=== PATIENT | male | born 1990 | race American Indian/Alaskan Native ===

== ENCOUNTER 2025-01-02 15:22 | Inpatient (IN) | payer OTHER ==
[~2025-01-02] VITALS: Ht 157.5 cm; Wt 90.1 kg
[2025-01-02 17:15] LABS: BASOPHILS % (AUTO) 1.3 % (0.0-2.0); EOSINOPHILS % (AUTO) 1.2 % (1.0-6.0); HEMATOCRIT 47.3 % (41-53); HEMOGLOBIN 15.8 g/dL (13.5-17.5); LYMPHOCYTES # (AUTO) 1.3 K/uL (1.0-4.8); MEAN CORPUSCULAR HEMOGLOBIN 27.2 pg (26.0-34.0); MEAN CORPUSCULAR HGB CONC 33.4 G/dL (31.0-37.0); MEAN CORPUSCULAR VOLUME 82 fL (80-100); MONOCYTES # (AUTO) 0.4 K/uL (0.1-1.0); MONOCYTES % (AUTO) 8.7 % (2.0-9.0); NEUTROPHILS # (AUTO) 2.6 K/uL (1.8-7.7); NEUTROPHILS % (AUTO) 58.8 % (40.0-70.0); PLATELET COUNT (AUTO) 189 K/uL (150-450); RED BLOOD CELL COUNT(AUTO) 5.79 MIL/uL (4.50-5.90); RED CELL DISTRIBUTION WIDTH 14.9 % (11.5-14.5); WHITE BLOOD COUNT (AUTO) 4.5 K/uL (4.5-11.0)
[2025-01-02 17:20] LABS: ANION GAP 6 mmol/L (8-16); CALCIUM, TOTAL 8.6 mg/dL (8.8-10.5); CARBON DIOXIDE 29 mmol/L (22-29); CHLORIDE 104 mmol/L (98-107); CREATININE 0.93 mg/dL (0.60-1.30); GLOMERULAR FILTR. RATE CALC > 60 mL/min (>60); GLUCOSE,RANDOM 93 mg/dL (70-110); POTASSIUM 4.5 mmol/L (3.5-5.1); SODIUM SERUM 139 mmol/L (136-145); UREA NITROGEN, BLOOD 11 mg/dL (7-18)
[2025-01-02] MEDS: VANCOMYCIN 1.75GM/WATER(PEG) 350 ML IV ONE (17:39)
[2025-01-02] MEDS ORDERED: MAGNESIUM HYDROXIDE SUSPENSION 30 ML UDCUP PO PRN (19:15)
[2025-01-02] MEDS ORDERED: OxyCODONE HCL/ACETAMINOPHEN 5-325 MG TABLET PO PRN (19:15)
[2025-01-02] MEDS ORDERED: ZOLPIDEM TARTRATE 5 MG TABLET PO PRN (19:15)
[2025-01-02] MEDS ORDERED: ONDANSETRON HCL 4 MG/2 ML VIAL IVP PRN (19:15)
[2025-01-02] MEDS ORDERED: ACETAMINOPHEN 325 MG TABLET PO PRN (19:15)
[2025-01-02] MEDS ORDERED: IOHEXOL 350 MG/ML 100 ML VIAL ONE (19:22)
[2025-01-02] MEDS ORDERED: 0.9% SODIUM CHLORIDE 10 ML SYRINGE IVP ONE (19:22)
[2025-01-02] MEDS ORDERED: SODIUM CHLORIDE 0.9% 100 ML ONE (19:22)
[2025-01-02 21:09] LABS: APPEARANCE,URINE CLEAR (CLEAR); BILIRUBIN,URINE NEGATIVE (NEGATIVE); COLOR,URINE LIGHT YELLOW (YELLOW); GLUCOSE, URINE (UA) NEGATIVE (NEGATIVE); KETONES,URINE NEGATIVE (NEGATIVE); LEUKOCYTE ESTERASE ,URINE NEGATIVE (NEGATIVE); NITRATE,URINE NEGATIVE (NEGATIVE); OCCULT BLOOD,URINE NEGATIVE (NEGATIVE); PH,URINE 5.5 (5.0-8.0); PROTEIN,URINE NEGATIVE (NEGATIVE); SPECIFIC GRAVITIY, URINE 1.022 (1.003-1.030); UROBILINOGEN,URINE <=1.0 mg/dL (<=1.0)
[2025-01-02] MEDS: PIPERACILLIN/TAZO 3.375 GM/D5W 50 ML IV ONE (21:15)
[2025-01-02] MEDS: DOCUSATE SODIUM 100 MG CAPSULE PO SCH (21:15)
[2025-01-02 22:15] VITALS: BP 131/67; PULSE 68; RESP 18; TEMP 98.6; O2SAT 95
[2025-01-03] MEDS ORDERED: SODIUM CHLORIDE 0.9% 500 ML IV ONE (03:46)
[2025-01-03] MEDS: PIPERACILLIN/TAZO 3.375 GM/D5W 50 ML IV SCH (04:30)
[2025-01-03 05:05] VITALS: BP 115/56; PULSE 53; RESP 18; TEMP 97.4; O2SAT 99
[2025-01-03] MEDS ORDERED: DEXAMETHASONE SOD PHOS 4 MG/ML VIAL ONE (06:03)
[2025-01-03] MEDS ORDERED: METOPROLOL TARTRATE 5 MG/5 ML VIAL ONE (06:03)
[2025-01-03] MEDS ORDERED: SUGAMMADEX SODIUM 200 MG/2 ML VIAL IVP ONE (06:03)
[2025-01-03] MEDS ORDERED: ONDANSETRON HCL 4 MG/2 ML VIAL ONE (06:03)
[2025-01-03] MEDS ORDERED: LIDOCAINE/PF 2% 5 ML VIAL ONE (06:03)
[2025-01-03] MEDS ORDERED: MIDAZOLAM HCL 2 MG/2 ML VIAL ONE (06:03)
[2025-01-03] MEDS ORDERED: FentaNYL CITRATE PF 100 MCG/2 ML VIAL ONE (06:03)
[2025-01-03] MEDS ORDERED: ROCURONIUM BROMIDE 10 MG/ML 5 ML VIAL ONE (06:03)
[2025-01-03] MEDS ORDERED: PROPOFOL 1% ISO-OSM 1000 MG/100 ML BOTTLE ONE (06:03)
[2025-01-03] MEDS ORDERED: CeFAZolin SODIUM 1 GM VIAL ONE (06:03)
[2025-01-03 07:36] LABS: ANION GAP 5 mmol/L (8-16); CALCIUM, TOTAL 8.2 mg/dL (8.8-10.5); CARBON DIOXIDE 30 mmol/L (22-29); CHLORIDE 106 mmol/L (98-107); CREATININE 0.99 mg/dL (0.60-1.30); GLOMERULAR FILTR. RATE CALC > 60 mL/min (>60); GLUCOSE,RANDOM 81 mg/dL (70-110); POTASSIUM 4.4 mmol/L (3.5-5.1); SODIUM SERUM 141 mmol/L (136-145); UREA NITROGEN, BLOOD 10 mg/dL (7-18)
[2025-01-03] MEDS: VANCOMYCIN 1.5 GM/WATER(PEG) 300 ML IV SCH (08:00)
[2025-01-03] MEDS: FAMOTIDINE 20 MG TABLET PO SCH (08:05)
[2025-01-03 10:04] VITALS: BP 105/58
[2025-01-03] MEDS: SODIUM CHLORIDE 0.9% 1,000 ML IV ONE (11:48)
[2025-01-03] MEDS ORDERED: RINGERS SOLUTION,LACTATED 1,000 ML IV ONE (13:24)
[2025-01-03] MEDS: CHLORHEXIDINE GLUCONATE 2% TOWELETTE [2'S/6'S] TP ONE (14:00)
[2025-01-03] MEDS: ETHYL ALCOHOL 62% ANTISEPTIC NASAL SANITIZER 0.6 ML AMPUL NASAL ONE (14:00)
[2025-01-03] MEDS: RINGERS SOLUTION,LACTATED 1,000 ML IV ONE (14:02)
[2025-01-03] MEDS ORDERED: HYDROmorphone HCL 2 MG/ML SYRINGE IVP PRN (15:45)
[2025-01-03] MEDS ORDERED: MEPERIDINE-PF 25 MG/ML VIAL IVP PRN (15:45)
[2025-01-03] MEDS ORDERED: FentaNYL CITRATE PF 100 MCG/2 ML VIAL IVP PRN (15:45)
[2025-01-03] MEDS: LIDOCAINE 1%/EPI 1:200,000/PF 30 ML VIAL ONE (16:24)
[2025-01-03 19:55] VITALS: BP 116/57; PULSE 71; RESP 18; TEMP 98.1; O2SAT 98
[2025-01-03] MEDS: OXYGEN THERAPY IH SCH (20:00)
[2025-01-04 05:22] VITALS: BP 110/54; PULSE 64; RESP 18; TEMP 98.1; O2SAT 96
[2025-01-04 07:36] LABS: ANION GAP 5 mmol/L (8-16); CALCIUM, TOTAL 8.4 mg/dL (8.8-10.5); CARBON DIOXIDE 28 mmol/L (22-29); CHLORIDE 103 mmol/L (98-107); GLOMERULAR FILTR. RATE CALC > 60 mL/min (>60); GLUCOSE,RANDOM 112 mg/dL (70-110); POTASSIUM 4.3 mmol/L (3.5-5.1); SODIUM SERUM 136 mmol/L (136-145); UREA NITROGEN, BLOOD 9 mg/dL (7-18)
[2025-01-04 08:25] VITALS: BP 103/53; PULSE 75; RESP 19; TEMP 97.7; O2SAT 96
[2025-01-04] MEDS: BUPRENORPHINE HCL/NALOXONE HCL 8-2 MG SUBLINGUAL TABLET SL ONE (10:06)
[2025-01-04] MEDS ORDERED: SULF-261 PO (10:16)
[2025-01-04] MEDS ORDERED: ACET-2247 PO (10:17)
[2025-01-04] MEDS ORDERED: MAGN-169 PO (10:18)
[2025-01-04] MEDS ORDERED: SULFAMETHOX/TRIMETH DS 800-160 MG/TABLET PO SCH (21:00)
== END 2025-01-04 19:15 | DRG 581 ==
LOC: EMS 15:22 → EDH 19:05 → 6N 21:42
PROVIDERS: ADMIT Internal Medicine; ATTEND Internal Medicine
PROC: 0W9F0ZZ Drainage of Abdominal Wall, Open Approach (ICD-10-PCS; principal; 2025-01-03 15:30)
DX: L03.311 Cellulitis of abdominal wall (principal); L02.211 Cutaneous abscess of abdominal wall; E66.9 Obesity, unspecified; Z68.36 Body mass index [BMI] 36.0-36.9, adult
CPT/HCPCS: 74177; 80048; 80202; 81003; 84145; 85025; 87040; 87070; 87081; 87186; 87205; 96365; 96367; 99285; J0690; J1100; J2250; J2405; J2543; J2704; J3010; J3490; J7030; J7040; J7050; J7120